=== PATIENT | female | born 1970 | race Caucasian/White ===

== ENCOUNTER 2016-11-11 15:57 | Emergency (ER) | payer OTHER ==
--- NOTE | ~2016-11-11 | CR72 ---
[facility] A Service of [facility] & [facility] RADIOLOGY TEXT RESULTS PATIENT: BERNARDINO WILL LOCATION: [facility] : 72 UNIT #: [id number] AGE: [address]: Charlette Weston MD SEX: F ORDER DR: [id number] [facility] [address] [place], [place] [address] [id number] E MR#: [id number] Acc #: [id number] NAME: BERNARDINO WILL. : 1970 SEX: F STUDY DATE/TIME: 11/11/2016 19:16 UNIT: [facility] ROOM: STUDY DESCRIPTION: CR Chest Single View Portable Attending Physician: Charlette Weston M.D. Ordering Physician: Charlette Weston M.D. Primary Care Physician: Renee Mccormick M.D. MEDICAL IMAGING REPORT This report is preliminary unless electronic signature is present EXAM Single view of the chest, 11/11/2016 COMPARISON None. HISTORY Patient took Ambien last night and this morning was hypoxic on arrival to the hospital. FINDINGS Single frontal view of the chest was obtained. Poor inspiratory film without any significant acute cardiopulmonary disease. Heart is borderline in size. Bones are unremarkable. Dictated by... Dylon Oviedo M.D. THIS IS AN ELECTRONICALLY VERIFIED REPORT Dylon Oviedo M.D. at 11/12/2016 5:13 PM CPR/ljd TD: 11/12/2016 03:27 JOB #: [id number] MEDICAL IMAGING REPORT Page 1 of 1 COPY
--- NOTE | ~2016-11-11 | EKG ---
PATIENT: BERNARDINO WILL UNIT #: [id number] Ventricular Rate: 99 BPM Atrial Rate: 99 BPM P-R Interval: 176 ms QRS Duration: 98 ms Q-T Interval: 386 ms QTC Calculation(Bezet): 495 ms P [place]: 43 degrees Calculated R [place]: -35 degrees Calculated T [place]: 35 degrees Diagnosis Line: Normal sinus rhythm Diagnosis Line: Left axis deviation Diagnosis Line: Left anterior fascicular block Diagnosis Line: Prolonged QT Diagnosis Line: Abnormal ECG Diagnosis Line: No previous ECGs available Diagnosis Line: Confirmed by NEIDA NARAYAN MD ([id number]) on Diagnosis Line: 11/12/2016 5:47:27 PM INTERPRETING MD: VIC
[~2016-11-11 15:57] MED LIST: NEXIUM PO; SKELAXIN PO; TYLOX 5/500 CAP1 CAP PO; ZOLOFT PO
[2016-11-11 19:11] LABS: ARTERIAL BLD GAS O2 SATURATION 78.8 % (90.0-100.0); ARTERIAL BLOOD GAS ALLEN TEST NORMAL; ARTERIAL BLOOD GAS CARBOXY HB 4.7 %sat (0.0-9.0); ARTERIAL BLOOD GAS HCO3 28.6 mmol/L; ARTERIAL BLOOD GAS MET HB 0.9 %sat (0.0-2.0); ARTERIAL BLOOD GAS PO2 48.1 mmHg (80.0-100); ARTERIAL BLOOD GAS pH 7.358 (7.350-7.450); ARTERIAL DRAW? YES
[2016-11-11 19:12] LABS: ARTERIAL BLOOD GAS ART SITE RIGHT BRACHIAL
[2016-11-11 19:30] LABS: BASOPHIL# 0.1 X10e3 (0-0.3); BASOPHIL% 0.3 % (0-2.5); HEMATOCRIT 37.8 % (35.0-45.0); HEMOGLOBIN 11.7 gm/dL (12.0-16.0); LYMPHOCYTE# 1.6 X10e3 (1.0-3.5); LYMPHOCYTE% 10.4 % (17.0-45.0); MEAN CELL VOLUME 78.4 FL (83-96); MEAN CORPUSCULAR HEMOGLOBIN 24.2 PG (28-34); MEAN CORPUSCULAR HGB CONC 30.8 g/dL (30-36); MEAN PLATELET VOLUME 8.8 FL (6.5-11.5); MONOCYTE# 0.8 X10e3 (0-1.0); MONOCYTE% 5.3 % (3.0-12.0); NEUTROPHIL# 13.3 X10e3 (1.5-7.1); RED BLOOD COUNT 4.82 X10e (3.90-5.30); RED CELL DISTRIBUTION WIDTH 16.3 % (11.0-15.5); WHITE BLOOD COUNT 15.9 X10e3 (4.0-10.5)
[2016-11-11 19:42] LABS: DIFF IND YES; PLATELET COUNT 302 X10e3 (140-420)
[2016-11-11 19:50] LABS: ALBUMIN SERUM 3.9 g/dL (3.5-5.0); BILIRUBIN, DIRECT 0.1 mg/dL (0.0-0.2); BILIRUBIN,INDIRECT 0.4 mg/dL (0.0-0.9); BILIRUBIN,TOTAL 0.5 mg/dL (0.2-2.0); CALCIUM SERUM 8.7 mg/dL (8.4-10.2); POTASSIUM 3.9 mmol/L (3.5-5.1); PROTEIN TOTAL SERUM 7.7 g/dL (6.0-8.3)
[2016-11-11 19:58] LABS: PLATELET ESTIMATE NORMAL (NORMAL)
[2016-11-11 20:05] LABS: HYPOCHROMIA SL; MICROCYTOSIS SL
[2016-11-11 21:00] LABS: URINE SOURCE CLEAN CATCH
[2016-11-11 21:07] LABS: URINE APPEARANCE CLEAR; URINE BILIRUBIN NEG (NEG); URINE BLOOD NEG (NEG); URINE COLOR YELLOW; URINE GLUCOSE NEG (NEG); URINE KETONE 1+ (NEG); URINE LEUKOCYTE ESTERASE NEG (NEG); URINE NITRATE NEG (NEG); URINE PH 5.5 (5-8); URINE PROTEIN 1+ (NEG); URINE SPECIFIC GRAVITY 1.017 (1.003-1.035)
[2016-11-11 21:09] LABS: URBCS1 AUWI 0-2 /[HPF] (0-2); URINE BACTERIA AUWI NEG (NEGATIVE); URINE SQUAMOUS EPITHELIAL CELL FEW /[HPF]
[2016-11-11 21:12] LABS: CULTURE INDICATED? NO; U HYALINE CASTS AUWI 0-2 /[LPF]
[2016-11-11 21:15] LABS: AMPHETAMINE NEG (NEG); BARBITURATES NEG (NEG); BENZODIAZEPINES NEG (NEG); COCAINE NEG (NEG); MARIJUANA NEG (NEG); OPIATES POS (NEG); TRICYCLIC ANTIDEPRESSANTS NEG (NEG); U METHADONE POS (NEG)
== END 2016-11-12 00:40 | disposition home or self-care (01) ==
LOC: CED 15:57
PROVIDERS: Student in an Organized Health Care Education/Training Program
DX: F11.10 Opioid abuse, uncomplicated (principal); E78.5 Hyperlipidemia, unspecified; I10 Essential (primary) hypertension; F17.200 Nicotine dependence, unspecified, uncomplicated; Z79.899 Other long term (current) drug therapy
CPT/HCPCS: 36415; 36600; 51701; 71010; 80048; 80076; 80307; 81003; 82803; 85025; 93005; 96360; 99284; J2310; J2405